=== PATIENT | female | born 2000 | race Caucasian/White ===

== ENCOUNTER → 2020-04-29 | Outpatient (CLI) | payer OTHER ==
--- NOTE | 2020-04-29 16:02 | Diagnostic Imaging Report ---
INDICATION: Pain in the lower right axillary region. TIME OF EXAM: 2:49 p.m. EXAMINATION: Multiple views of right-sided ribs were obtained. FINDINGS: No dysplasia or fracture seen. No parenchymal contusion, effusion or pneumothorax is identified. IMPRESSION: No acute abnormality is detected. Dictated by: Dictated on workstation # [id number]
== END ==
LOC: RAD 14:35
PROVIDERS: ATTEND Nurse Practitioner Family
DX: R07.81 Pleurodynia (principal)
CPT/HCPCS: 71100

== ENCOUNTER → 2023-01-19 | Outpatient (CLI) | payer OTHER ==
--- NOTE | 2023-01-19 17:08 | Diagnostic Imaging Report ---
INDICATION: Supervision of normal . Anatomy scan. TECHNIQUE: Multiple real-time grayscale images were obtained over the gravid uterus. COMPARISON: None. FINDINGS: A single live intrauterine gestation is visualized in cephalic presentation. heart tones measure 161 bpm. The placenta is posterior and not low lying. The JAYLA is normal measuring 13.2 cm. The cervix is closed and measures 3.2 cm in length. The kidneys, bladder, stomach, brain, four-chamber heart, three-vessel cord, cord insertion, and spine are visualized and have a normal sonographic appearance. Views of the adnexa are unremarkable. Biometrical measurements are as follows: Biparietal 5.75 cm, age 23 weeks 5 days. Head circumference 21.66 cm, age 23 weeks 5 days. Abdominal circumference 18.51 cm, age 23 weeks 3 days. Femur length 4.15 cm, age 23 weeks 4 days. Sonographic estimate age: 23 weeks 5 days. Sonographic estimated date of delivery: 05/13/2023. Estimated Weight: 594 gm (+/- 87 gm). LMP percentile: 71%. heart rate: 161 beats per minute. number: 1 of 1. IMPRESSION: 1. Single live intrauterine gestation measuring 23 weeks 5 days with an estimated due date of 05/13/2023. These are within range with the clinical dates. 2. No abnormality is visualized. Dictated by: Dictated on workstation # [id number]
== END ==
LOC: RAD 14:00
PROVIDERS: ATTEND Obstetrics & Gynecology
DX: Z36.89 Encounter for other specified antenatal screening (principal); Z3A.23 23 weeks gestation of pregnancy
CPT/HCPCS: 76805